=== PATIENT | male | born 1945 | race Caucasian/White ===

== ENCOUNTER 2025-03-04 15:35 | Emergency (ER) | payer MEDICARE, BC ==
[2025-03-04] MEDS ORDERED: Naloxone 2 MG/2 ML Syringe IVPUSH PRN (15:57)
[2025-03-04] MEDS: fentaNYL 50 MCG/ML SDV IVPUSH ONE (15:59)
[2025-03-04] MEDS: HYDROmorphone 1 MG/ML Syringe IVPUSH ONE ×3 (16:08→20:21)
[2025-03-04 16:12] LABS: BASOPHILS ABSOLUTE AUTO 0.02 10^3/uL (0.00-0.50); BASOPHILS PERCENT AUTO 0.1 % (0-1); EOSINOPHILS ABSOLUTE AUTO 0.01 10^3/uL (0.00-1.50); EOSINOPHILS PERCENT AUTO 0.1 % (0-6); HEMATOCRIT 45.4 % (42.0-52.0); IMMATURE GRAN ABSOLUTE AUTO 0.14 10^3/uL (0.00-0.49); IMMATURE GRAN PERCENT AUTO 0.7 % (0.0-4.9); LYMPHOCYTES ABSOLUTE AUTO 0.78 10^3/uL (0.60-5.00); LYMPHOCYTES PERCENT AUTO 3.9 % (24-44); MEAN CORPUSCULAR HEMOGLOBIN 32.3 pg (27.0-32.0); MEAN CORPUSCULAR HGB CONC 35.2 g/dL (32.0-36.0); MEAN CORPUSCULAR VOLUME 91.7 fL (83.0-97.0); MONOCYTES ABSOLUTE AUTO 1.15 10^3/uL (0.00-1.50); MONOCYTES PERCENT AUTO 5.8 % (0-10); NEUTROPHILS ABSOLUTE AUTO 17.89 x10^3/uL (1.80-8.00); NEUTROPHILS PERCENT AUTO 89.4 % (41-71); PLATELET COUNT,PLT 223 10^3/uL (150-400); RED BLOOD CELL COUNT 4.95 x10^6/uL (4.50-6.00)
[2025-03-04] MEDS: fentaNYL 50 MCG/ML SDV ONE (16:29)
[2025-03-04] MEDS: diazePAM 10 MG/2 ML Syringe IVPUSH ONE (16:31)
[2025-03-04 16:34] LABS: ALANINE AMINOTRANSFERASE,ALT 40 U/L (12-78); ALBUMIN 4.1 g/dL (3.4-5.0); ALKALINE PHOSPHATASE 86 U/L (46-116); ASPARTATE AMNIOTRANSFERASE,AST 33 U/L (15-37); BILIRUBIN TOTAL 1.4 mg/dL (0.0-1.0); BLOOD UREA NITROGEN,BUN 20 mg/dL (7-18); CALCIUM 9.3 mg/dL (8.4-10.1); CARBON DIOXIDE,CO2 23 mmol/L (21-32); CHLORIDE,CL 102 mEq/L (98-106); GLUCOSE RANDOM 142 mg/dL (75-99); POTASSIUM,K 4.1 mEq/L (3.5-5.0); PROTEIN TOTAL,TP 7.3 g/dL (6.4-8.2); SODIUM,NA 141 mEq/L (136-145)
[2025-03-04 16:37] LABS: ESTIMATED GFR 76 mL/min (>=60)
[2025-03-04 16:44] LABS: INR 1.02 (0.92-1.18); PROTHROMBIN TIME 10.6 SEC (9.3-11.3); PTT,PARTIAL THROMBOPLSTIN TIME 22.3 SEC (20.0-30.0)
[2025-03-04] MEDS: Sodium Chloride 0.9% 1,000 ML IV ONE (17:37)
[2025-03-04] MEDS: Diphtheria,Pertussis(Acell),Tetanus Vaccine 0.5 ML Syringe IM ONE (18:37)
== END 2025-03-04 20:32 ==
LOC: CC.ED 15:35
DX: S72.002A Fracture of unspecified part of neck of left femur, initial encounter for closed fracture (principal); S32.059A Unspecified fracture of fifth lumbar vertebra, initial encounter for closed fracture; S32.10XA Unspecified fracture of sacrum, initial encounter for closed fracture; Z23 Encounter for immunization; W01.0XXA Fall on same level from slipping, tripping and stumbling without subsequent striking against object, initial encounter
CPT/HCPCS: 36415; 71045; 72131; 72192; 73700-LT; 80053; 83605; 85025; 85610; 85730; 86140; 90471; 90715; 96374; 96375; 96376; 99284; 99285-25; J1171; J3010; J3360; J7030